=== PATIENT | male | born 1955 | race Caucasian/White ===

== ENCOUNTER → 2017-03-17 | Outpatient (CLI) | payer OTHER ==
[~2017-03-17] MED LIST: ACET-1138 PO; ASPEC81 PO; CZR50 PO; MULT-506 PO; OXYSR10 PO; RXC5 PO; ZNTT/150 PO
== END | disposition home or self-care (01) ==
LOC: C.CPL 13:08
PROVIDERS: ATTEND Orthopaedic Surgery
DX: S66.901D Unspecified injury of unspecified muscle, fascia and tendon at wrist and hand level, right hand, subsequent encounter (principal); X58.XXXD Exposure to other specified factors, subsequent encounter

== ENCOUNTER → 2017-11-19 | Outpatient (CLI) | payer OTHER ==
[~2017-11-19] MED LIST changes: -ACET-1138 PO; -ASPEC81 PO; -OXYSR10 PO; +PRLSR20 PO; -RXC5 PO; -ZNTT/150 PO
== END | disposition home or self-care (01) ==
LOC: C.LABSPEC 16:59
PROVIDERS: ATTEND Physician Assistant
DX: R19.6 Halitosis (principal)